=== PATIENT | female | born 1985 | race Caucasian/White ===

== ENCOUNTER 2019-12-31 12:35 | Outpatient (CLI) | payer BC ==
--- NOTE | 2019-12-31 14:07 | Diagnostic Imaging Report ---
Indication: Cough Technique: XRAY Chest 2v Comparison: None Findings: Heart size and mediastinal contours within normal limits. There is no focal airspace consolidation. No pleural effusion, pneumothorax or radiographic evidence of pulmonary edema. No acute osseous abnormality. Impression: No radiographic evidence of acute cardiopulmonary disease.
== END 2019-12-31 14:35 | disposition home or self-care (01) ==
LOC: RAD 12:35
DX: R05 Cough (principal); J20.9 Acute bronchitis, unspecified
CPT/HCPCS: 71046